=== PATIENT | female | born 1980 | race Caucasian/White ===

== ENCOUNTER 2021-06-16 10:36 | Outpatient (CLI) | payer SELFPAY, OTHER ==
--- NOTE | 2021-06-16 10:38 | BI_ITS ---
MAMMOGRAPHY - BILATERAL SCREENING REASON FOR EXAM: Female, 41 years old. Routine annual screening examination. PERTINENT HISTORY: Non-contributory. TECHNIQUE: Digital bilateral breast daija (3D mammographic acquisition) in the CC and MLO projections. 2-D mediolateral oblique (MLO) and craniocaudad (CC) views of both breasts were obtained. CAD: Full Field Digital Mammography with Computer Added Detection was performed. COMPARISON: None. Baseline examination. FINDINGS: Breast Composition: There are scattered areas of fibroglandular density. There are no dominant masses or suspicious calcifications. There is a 3.1 mm well-defined nodule in the deep lateral aspect of the right breast. This most likely represents a small lymph node. No other significant abnormalities are identified. BI/SCRN MAMM (CAD)W/DAIJA BILAT IMPRESSION: 3.1 mm well-defined nodule in the deep lateral aspect of the right breast. This most likely represents a small lymph node. Yearly follow-up mammogram recommended. (A) ASSESSMENT CATEGORY: BIRADS Category 2: Benign. A letter regarding these results will be sent to the patient by the facility within 30 days. Approximately 10% of breast cancers are not detected by mammography. A normal mammogram should not delay biopsy of a clinically suspicious abnormality. [id number] Electronically Signed: Rosalio Trujillo MD at 12:58 EDT ,
== END 2021-06-16 23:59 | disposition home or self-care (01) ==
LOC: OPBI 10:37
PROVIDERS: Referring Provider Obstetrics & Gynecology; Visit Provider Obstetrics & Gynecology
DX: Z12.31 Encounter for screening mammogram for malignant neoplasm of breast (principal)
CPT/HCPCS: 77063; 77067